=== PATIENT | female | born 1960 | race Caucasian/White ===

== ENCOUNTER → 2017-02-02 | Outpatient (CLI) | payer BC ==
[~2017-02-02] MED LIST: ALPR-411 PO; AMB10 PO; CALC500C70 PO; EFF50 PO; ERGO1CAP35 PO; LRT5 PO; MRLP17 PO; OLME40TA30 PO
--- NOTE | 2017-02-02 16:07 | DIAGNOSTIC IMAGING REPORT ---
RIGHT HAND 3 VIEWS CLINICAL HISTORY: Right hand pain. FINDINGS: 3 views of the right hand compared to study dated 12/27/2012. The skeletal structures are well mineralized. No fracture is seen. The joint spaces of the hand are well-maintained. The overlying soft tissues are within normal limits. IMPRESSION: No acute bony abnormality is seen in the right hand. Electronically signed by: Layo Callahan M.D. 02/02/2017 4:06 PM Dictated Date/Time: 02/02/2017 4:04 PM
== END | disposition home or self-care (01) ==
LOC: C.RAD 15:50
PROVIDERS: ATTEND Family Medicine
DX: M79.641 Pain in right hand (principal)

== ENCOUNTER → 2017-03-01 | Outpatient (CLI) | payer OTHER, BC ==
--- NOTE | 2017-03-01 09:29 | DIAGNOSTIC IMAGING REPORT ---
RIGHT HAND MIN 3 VIEWS CLINICAL HISTORY: Right hand pain. Trauma. COMPARISON: 02/02/2017 DISCUSSION: The bony mineralization appears normal for age. No fractures or subluxations are visualized. There is no erosive disease. IMPRESSION: No bony abnormalities identified. Electronically signed by: Marc Valero M.D. 03/01/2017 9:27 AM Dictated Date/Time: 03/01/2017 9:26 AM
== END | disposition home or self-care (01) ==
LOC: C.RDSM 09:19
PROVIDERS: ATTEND Family Medicine
DX: M79.641 Pain in right hand (principal)

== ENCOUNTER → 2017-09-13 | Outpatient (CLI) | payer BC ==
--- NOTE | 2017-09-14 07:47 | MAMMOGRAPHY REPORT ---
BILATERAL DIGITAL SCREENING MAMMOGRAM TOMOSYNTHESIS WITH CAD: 09/13/2017 CLINICAL HISTORY: Routine screening. Patient has no complaints. TECHNIQUE: Breast tomosynthesis in addition to standard 2D mammography was performed. Current study was also evaluated with a Computer Aided Detection (CAD) system. COMPARISON: Comparison is made to exams dated: 07/21/2016 mammogram, 07/17/2015 mammogram, 12/21/2013 ma mmogram, 12/20/2012 mammogram, 01/22/2011 mammogram, and 09/10/2009 mammogram - [facility] nter. BREAST COMPOSITION: There are scattered areas of fibroglandular density in both breasts. FINDINGS: There are benign rim calcifications and oil cysts throughout the superior right breast. No suspicious mass, architectural distortion or cluster of suspicious microcalcifications is seen. IMPRESSION: ACR BI-RADS CATEGORY 1: NEGATIVE There is no mammographic evidence of malignancy. A 1 year screening mammogram is recommended. The pa tient will receive written notification of the results. Approximately 10% of breast cancers are not detected with mammography. A negative mammographic report should not delay biopsy if a clinically suggestive mass is present. Mi Saha M.D. ay/:09/13/2017 20:17:57 Supervisor [employer]andy: Chloé MERCADOR, M, [facility] letter sent: Normal 1/2 BI-RADS Code: ACR BI-RADS Category 1: Negative
== END | disposition home or self-care (01) ==
LOC: C.MAMM 13:48
PROVIDERS: ATTEND Family Medicine
DX: Z12.31 Encounter for screening mammogram for malignant neoplasm of breast (principal)